=== PATIENT | female | born 2000 | race Two or more races ===

== ENCOUNTER 2019-09-05 21:26 | Emergency (ER) | payer SELFPAY ==
[~2019-09-05] VITALS: Ht 157.5 cm; Wt 75.3 kg
[2019-09-05 21:26] VITALS: BP 108/55
--- NOTE | 2019-09-05 21:50 | PHYS DOC ---
General Adult EDM: Chief Complaint: PAIN ON URINATION HPI: HPI: Patient is a 19 year old female who presents with dysuria. Pt. left before exam. Did not notify staff. No answer on phone [phone]. Pt. eventually contacted and advised of the Urinary tract infection and to follow up with primary or return to ED to complete her evaluation. Review of Systems: Review of Systems: Hx given of dyspuria Heart Score: Risk Factors: Risk Factors: DM, Current or recent (<one month) smoker, HTN, HLP, family history of CAD, obesity. Risk Scores: Score 0 - 3: 2.5% MACE over next 6 weeks - Discharge Home Score 4 - 6: 20.3% MACE over next 6 weeks - Admit for Clinical Observation Score 7 - 10: 72.7% MACE over next 6 weeks - Early Invasive Strategies Physical Exam: PE: Left before exam. Did not notify staff. EKG: EKG: [] Radiology/Procedures: Radiology/Procedures: [] Course & Med Decision Making: Course & Med Decision Making Pertinent Labs and Imaging studies reviewed. (See chart for details) Pt. left with exam. Did not notify staff. Impression: 1. Dysuria 2. UTI [] Dragon Disclaimer: Dragon Disclaimer: This electronic medical record was generated, in whole or in part, using a voice recognition dictation system. Departure Departure: Disposition: 01 HOME/RESIDENCE PRIOR TO ADM Condition: STABLE Referrals: PCP,NO (PCP) Dragon Disclaimer This chart was dictated in whole or in part using Voice Recognition software in a busy, high-work load, and often noisy Emergency Department environment. It may contain unintended and wholly unrecognized errors or omissions. Dragon Disclaimer This chart was dictated in whole or in part using Voice Recognition software in a busy, high-work load, and often noisy Emergency Department environment. It may contain unintended and wholly unrecognized errors or omissions. HORTENCIA MG MD September 05, 2019 21:50
[2019-09-05 22:30] LABS: BILIRUBIN,URINE NEG (NEG); CLARITY,URINE CLOUDY; COLOR,URINE YELLOW; GLUCOSE,URINE NEG (NEG)
[2019-09-05 22:31] LABS: NITRITE,URINE NEG (NEG); UROBILINOGEN,URINE 0.2 mg/dL (0.2 mg/dL)
[2019-09-05 22:33] LABS: BACTERIA,URINE MOD /HPF (0-FEW); SQUAMOUS EPITHELIAL CELL,UR MOD /LPF
[2019-09-05 22:34] LABS: AMORPHOUS SEDIMENT,UR PRESENT /HPF
== END 2019-09-05 23:37 | disposition left against medical advice (07) ==
LOC: ER 21:26 → EDSEX 21:26 → ER 23:37
DX: N39.0 Urinary tract infection, site not specified (principal); R30.0 Dysuria
CPT/HCPCS: 81001; 81025; 87086; 87491; 87591; 99283

== ENCOUNTER 2019-11-02 02:50 | Emergency (ER) | payer SELFPAY ==
[~2019-11-02] VITALS: Ht 157.5 cm; Wt 77.0 kg
[2019-11-02 02:50] VITALS: BP 110/59
--- NOTE | 2019-11-02 03:09 | PHYS DOC ---
Past History Past Medical History: UTI Past Surgical History: Tonsillectomy Alcohol Use: None General Adult EDM: Chief Complaint: PAIN ON URINATION HPI: HPI: ". I think.. I ve got a UTI...I get a lot of UTI..It naidu when I uri miesha..."..".. and I noticed some white stuff in my urine... ".. " I have not established any primary doctor here.. yet.. I used to live here.. My dad was in the service.. but we moved away. To [place]. in 2014.. just have moved back..." Patient is a 19 year old female who presents with above hx and complaints of dyspuria. Patient has history of previous urine tract infections. Patient the past has been sexually active but no history of recent sexual activity. Patient denies any history of diabetes. No recent travel outside [facility]. Has had previous pelvic exams and cultured for STDs when in [place].. Reportedly all these tests were negative. Patient denies history of immunosuppression. Patient states she is normally healthy. Is not currently using Pyridium. Pt. presented to ED on 09/05/19 for UTI, but did not wait to be placed in a room. Review of Systems: Review of Systems: Constitutional: Denies fever or chills Eyes: Denies change in visual acuity HENT: Denies nasal congestion or sore throat Respiratory: Denies cough or shortness of breath Cardiovascular: Denies chest pain or edema GI: Denies abdominal pain, nausea, vomiting, bloody stools or diarrhea : Complaints of dysuria Musculoskeletal: Denies back pain or joint pain Integument: Denies rash Neurologic: Denies headache, focal weakness or sensory changes Endocrine: Denies polyuria or polydipsia Lymphatic: Denies swollen glands Psychiatric: Denies depression or anxiety Heart Score: Risk Factors: Risk Factors: DM, Current or recent (<one month) smoker, HTN, HLP, family history of CAD, obesity. Risk Scores: Score 0 - 3: 2.5% MACE over next 6 weeks - Discharge Home Score 4 - 6: 20.3% MACE over next 6 weeks - Admit for Clinical Observation Score 7 - 10: 72.7% MACE over next 6 weeks - Early Invasive Strategies Family History: Family History: Noncontributory Current Medications: Current Meds: See nursing for home meds Allergies: Allergies: Allergies Coded Allergies Type Severity Reaction Last Updated Verified No Known Drug Allergies 09/05/19 No Physical Exam: PE: Constitutional: Well developed, well nourished, no acute distress, non-toxic appearance. [] HENT: Normocephalic, atraumatic, bilateral external ears normal, oropharynx moist, no oral exudates, nose normal. [] Eyes: PERRLA, EOMI, conjunctiva normal, no discharge. [] Neck: Normal range of motion, no tenderness, supple, no stridor. [] Cardiovascular:Heart rate regular rhythm, no murmur [] Lungs & Thorax: Bilateral breath sounds clear to auscultation [] Abdomen: Bowel sounds normal, soft, no tenderness, no masses, no pulsatile mas ses. [] Declines pelvic exam at this time. Skin: Warm, dry, no erythema, no rash. [] Back: No tenderness, no CVA tenderness. [] Extremities: No tenderness, no cyanosis, no clubbing, ROM intact, no edema. [] Neurologic: Alert and oriented X 3, normal motor function, normal sensory function, no focal deficits noted. [] Psychologic: Affect anxious, judgement normal, mood normal. [] EKG: EKG: [] Radiology/Procedures: Radiology/Procedures: [] Course & Med Decision Making: Course & Med Decision Making Pertinent Labs and Imaging studies reviewed. (See chart for details) Patient to push fluids. Patient push vitamin C drinks. Patient follow-up pending cultures. Take Bactrim DS twice a day. After completing Bactrim take Diflucan x 3 days.. Patient take Tylenol or ibuprofen for discomfort. Impression: 1. Dysuria 2. UTI [] Dragon Disclaimer: Marilin Disclaimer: This electronic medical record was generated, in whole or in part, using a voice recognition dictation system. Departure Departure: Disposition: 01 HOME/RESIDENCE PRIOR TO ADM Condition: STABLE Referrals: PCP,NO (PCP) Scripts Fluconazole (DIFLUCAN) 100 Mg Tablet 100 MG PO DAILY for post antibiotic for 3 Days, #3 TAB Prov: HORTENCIA MG MD 11/02/19 Sulfamethoxazole/Trimethoprim (BACTRIM DS TABLET) 1 Each Tablet 1 TAB PO BID for UTI for 7 Days, #14 TAB 0 Refills Prov: HORTENCIA MG MD 11/02/19 Justification of Admission: Justification of Admission: Justification of Admission Dx: N/A Marilin Disclaimer This chart was dictated in whole or in part using Voice Recognition software in a busy, high-work load, and often noisy Emergency Department environment. It may contain unintended and wholly unrecognized errors or omissions. Dragon Disclaimer This chart was dictated in whole or in part using Voice Recognition software in a busy, high-work load, and often noisy Emergency Department environment. It may contain unintended and wholly unrecognized errors or omissions. HORTENCIA MG MD Nov 02, 2019 03:09
[2019-11-02 03:23] LABS: BARBITURATES NEG (NEG); BENZODIAZEPINES NEG (NEG); CANNABINOIDS NEG (NEG); COCAINE NEG (NEG); METHADONE NEG (NEG); OPIATES NEG (NEG); PHENCYCLIDINE NEG (NEG)
[2019-11-02 03:26] LABS: AMPHETAMINE/METHAMPHETAMINE NEG (NEG)
[2019-11-02 03:29] LABS: BACTERIA,URINE FEW /HPF (0-FEW); BILIRUBIN,URINE NEG (NEG); CLARITY,URINE CLEAR; COLOR,URINE YELLOW; GLUCOSE,URINE NEG (NEG); NITRITE,URINE NEG (NEG); SQUAMOUS EPITHELIAL CELL,UR FEW /LPF; UROBILINOGEN,URINE 0.2 mg/dL (0.2 mg/dL)
[2019-11-02 03:43] LABS: U PREG PATIENT NEGATIVE (NEG)
[2019-11-02] MEDS ORDERED: SULF1TAB24 PO (03:51)
[2019-11-02] MEDS ORDERED: FLUC100T7 PO (03:51)
[2019-11-02] MEDS ORDERED: SMZ/TMP 800/160MG TABLET. PO ONE (04:00)
[2019-11-02] MEDS ORDERED: PHENAZOPYRIDINE 200 MG TABLET. PO ONE (04:00)
== END 2019-11-02 03:59 | disposition home or self-care (01) ==
LOC: ER 02:50
DX: N39.0 Urinary tract infection, site not specified (principal); R30.0 Dysuria; Z87.442 Personal history of urinary calculi
CPT/HCPCS: 36415; 80307; 81001; 81025; 87086; 99283